=== PATIENT | male | born 1990 | race Caucasian/White ===

== ENCOUNTER → 2020-09-11 | Outpatient (CLI) | payer BC ==
[~2020-09-11] MED LIST: ACULAR 3 ML3 M1 OP; AMOXICILLIN500 MG PO; AUGMENTIN 875 M1 TAB PO; CLARITIN10 MG PO; TYLENOL W/CODEI1 TA2 PO
== END | disposition home or self-care (01) ==
LOC: COVID19 12:04
PROVIDERS: ATTEND Internal Medicine
DX: Z20.828 Contact with and (suspected) exposure to other viral communicable diseases (principal)

== ENCOUNTER 2024-01-28 12:42 | Emergency (ER) | payer OTHER ==
[~2024-01-28] VITALS: Ht 182.8 cm; Wt 158.8 kg
[2024-01-28] MEDS ORDERED: POTASSIUM CHLO20 ME3 PO (13:02)
[2024-01-28] MEDS ORDERED: METOPROLOL SUCC50 M1 PO (13:02)
[2024-01-28] MEDS ORDERED: FUROSEMIDE40 MG PO (13:02)
[2024-01-28] MEDS ORDERED: OZEMPIC1 MG/0.71 SQ (13:03)
[2024-01-28] MEDS ORDERED: ASPIRIN ADULT L81 M1 PO (13:04)
[2024-01-28] MEDS ORDERED: OMEPRAZOLE MAGN20 MG PO (13:05)
[2024-01-28] MEDS ORDERED: ACETAMINOPHEN 325 MG TAB PO ONE (13:35)
[2024-01-28] MEDS ORDERED: ZITHROMAX250 MG PO (13:42)
== END 2024-01-28 13:43 | disposition home or self-care (01) ==
LOC: ED 12:42
DX: J32.9 Chronic sinusitis, unspecified (principal); H92.02 Otalgia, left ear

== ENCOUNTER → 2024-02-16 | Outpatient (CLI) | payer OTHER ==
[~2024-02-16] MED LIST changes: +ASPIRIN ADULT L81 M1 PO; +FUROSEMIDE40 MG PO; +METOPROLOL SUCC50 M1 PO; +OMEPRAZOLE MAGN20 MG PO; +OZEMPIC1 MG/0.71 SQ; +POTASSIUM CHLO20 ME3 PO; +ZITHROMAX250 MG PO
== END ==
LOC: US 00:35
PROVIDERS: ATTEND Nurse Practitioner Primary Care
DX: K76.0 Fatty (change of) liver, not elsewhere classified (principal); R16.1 Splenomegaly, not elsewhere classified

== ENCOUNTER → 2024-07-13 | Outpatient (CLI) | payer OTHER | END | disposition home or self-care (01) | LOC: RAD 13:18 | PROVIDERS: ATTEND Nurse Practitioner Primary Care | DX: M54.42 Lumbago with sciatica, left side (principal) ==

== ENCOUNTER → 2025-04-26 | Outpatient (CLI) | payer OTHER | END | disposition home or self-care (01) | LOC: RAD 14:45 → CARD 14:45 | PROVIDERS: ATTEND Nurse Practitioner Primary Care | DX: I49.9 Cardiac arrhythmia, unspecified (principal) ==